=== PATIENT | male | born 1950 | race Caucasian/White ===

== ENCOUNTER 2019-01-26 09:30 | Emergency (ER) | payer MEDICARE, OTHER ==
[2019-01-26] MEDS ORDERED: ASPIRIN 81 MG TABLET, CHEWABLE PO ONE (09:45)
--- NOTE | 2019-01-26 09:48 | ER Document Report ---
ED Medical Screen (RME) - General Chief Complaint: Chest Pressure Stated Complaint: BLOOD PRESSURE ISSUES Time Seen by Provider: 01/26/19 09:45 Primary Care Provider: DAVID MCFARLAND MD [Primary Care Provider] - Follow up as needed TRAVEL OUTSIDE OF THE [place] IN LAST 30 DAYS: No - HPI Notes: 01/26/19 09:47 Patient is a 68-year-old male with a history of hypertension and hypercho lesterolemia who presents complaining of chest tightness, elevated blood pressure that began last evening with an episode of diaphoresis this morning. Patient states that he does continue to have some tightness in his chest without any shortness of breath or dyspnea on exertion. No history of coronary artery disease, CHF, CKD, SD, DM, PE. Denies ALFREDO, fever, neck pain, URI, SOB, Abd pain, n/v/d, dysuria, back pain, or rash. I have treated and performed a rapid initial assessment of this patient. A comprehensive ED assessment and evaluation of the patient, analysis of test results and completion of medical decision making process will be conducted by additional ED providers. PHYSICAL EXAMINATION: GENERAL: Well-appearing, well-nourished and in no acute distress. A&Ox4. Answers questions appropriately. LUNGS: Breath sounds clear to auscultation bilaterally and equal. No wheezes rales or rhonchi. HEART: Regular rate and rhythm without murmurs, rubs, gallops. Extremities: No cyanosis, clubbing, or edema b/l. Rashida negative bilaterally. No lower extremity asymmetry. NEUROLOGICAL: Normal speech, normal gait. PSYCH: Normal mood, normal affect. - Related Data Allergies/Adverse Reactions: No Known Allergies Allergy (Verified 01/26/19 09:30) Past Medical History Past Surgical History: Reports: Hx Appendectomy - Immunizations Hx Diphtheria, Pertussis, Tetanus Vaccination: No - needs tetanus Physical Exam - Vital signs Vitals: Temp Pulse Resp BP Pulse Ox 98.0 F 75 16 160/90 H 96 01/26/19 09:43 01/26/19 09:43 01/26/19 09:43 01/26/19 09:43 01/26/19 09:43 Course - Vital Signs Vital signs: Temp Pulse Resp BP Pulse Ox 98.0 F 75 16 160/90 H 96 01/26/19 09:43 01/26/19 09:43 01/26/19 09:43 01/26/19 09:43 01/26/19 09:43 Doctor's Discharge - Discharge Referrals: DAVID MCFARLAND MD [Primary Care Provider] - Follow up as needed
[2019-01-26 10:15] LABS: ABSOLUTE EOSINOPHILS # (AUTO) 0.1 10^3/uL (0.0-0.6); ABSOLUTE LYMPHOCYTES (AUTO) 0.8 10^3/uL (0.5-4.7); ABSOLUTE MONOCYTES (AUTO) 0.4 10^3/uL (0.1-1.4); ABSOLUTE NEUT (AUTO) 3.8 10^3/uL (1.7-8.2); BASOPHILS % (AUTO) 0.6 % (0-2); EOSINOPHILS % (AUTO) 1.2 % (0-6); HEMATOCRIT 47.4 % (37.9-51.0); HEMOGLOBIN 16.3 g/dL (13.5-17.0); LYMPHOCYTES % (AUTO) 16.6 % (13-45); MEAN CORPUSCULAR HEMOGLOBIN 31.2 pg (27.0-33.4); MEAN CORPUSCULAR HGB CONC 34.3 g/dL (32.0-36.0); MEAN CORPUSCULAR VOLUME 91 fl (80-97); MONOCYTES % (AUTO) 7.8 % (3-13); PLATELET COUNT 212 10^3/uL (150-450); RED BLOOD COUNT 5.22 10^6/uL (4.35-5.55); RED CELL DISTRIBUTION WIDTH 13.1 % (11.5-14.0); SEGMENTED NEUTROPHILS % (AUTO) 73.8 % (42-78); TOTAL CELLS COUNTED % (AUTO) 100 %; WHITE BLOOD COUNT 5.1 10^3/uL (4.0-10.5)
[2019-01-26 10:31] LABS: ALANINE AMINOTRANSFERASE 30 U/L (21-72); ALBUMIN 4.3 g/dL (3.5-5.0); ALKALINE PHOSPHATASE 54 U/L (38-126); ANION GAP 7 (5-19); ASPARTATE AMINO TRANSFERASE 26 U/L (17-59); BILIRUBIN,DIRECT 0.2 mg/dL (0.0-0.4); BILIRUBIN,TOTAL 0.7 mg/dL (0.2-1.3); BLOOD UREA NITROGEN 14 mg/dL (7-20); CARBON DIOXIDE 29 mmol/L (22-30); CHLORIDE 105 mmol/L (98-107); GLUCOSE 93 mg/dL (75-110); POTASSIUM 4.1 mmol/L (3.6-5.0); SODIUM 141.2 mmol/L (137-145); TOTAL PROTEIN 6.9 g/dL (6.3-8.2)
--- NOTE | 2019-01-26 10:44 | RADIOLOGY REPORT (SQ) ---
EXAM DESCRIPTION: CHEST SINGLE VIEW COMPLETED DATE/TIME: 01/26/2019 10:36 am REASON FOR STUDY: CP COMPARISON: 10/01/2009 EXAM PARAMETERS: NUMBER OF VIEWS: One view. TECHNIQUE: Single frontal radiographic view of the chest acquired. RADIATION DOSE: NA LIMITATIONS: None. FINDINGS: LUNGS AND PLEURA: No opacities, masses or pneumothorax. No pleural effusion. MEDIASTINUM AND HILAR STRUCTURES: No masses. Contour normal. HEART AND VASCULAR STRUCTURES: Heart normal in size. Normal vasculature. BONES: No acute findings. HARDWARE: None in the chest. OTHER: No other significant finding. IMPRESSION: NO ACUTE RADIOGRAPHIC FINDING IN THE CHEST. TECHNICAL DOCUMENTATION: JOB ID: [id number] [employer]- All Rights Reserved Reading location - IP/workstation name: [email or web address]
--- NOTE | 2019-01-26 14:56 | ER Document Report ---
Entered by BERT BLANCO SCRIBE 01/26/19 1026 Acting as scribe for:RALPH ZARAGOZA DO ED General - General Chief Complaint: Chest Pressure Stated Complaint: BLOOD PRESSURE ISSUES Time Seen by Provider: 01/26/19 09:45 Primary Care Provider: DAVID MCFARLAND MD [NO LOCAL MD] - Follow up as needed Notes: 68-year-old male presents emergency department complaining of chest pressure onset yesterday. Patient states he was working out in the yard and felt a little bit more tired than usual so he came inside, he checked his blood pressure and found it was elevated and then he developed some chest pressure or tightness associated with diaphoresis. It did resolve with rest. This morning before jainism he checked his blood pressure again and found to be elevated into the 170s over 90s, went to jainism and during jainism he again developed chest pressure and diaphoresis which has since resolved with rest. Patient is currently chest pain-free. Patient has no history of cardiac disease, has no history of stress test or heart cath, only has a history of hypertension and borderline hyperlipidemia for which he recently stopped taking his medications. Father of a heart attack at 69 but did have a history of smoking and drinking, no other history of heart attacks in the family prior to age 80. TRAVEL OUTSIDE OF THE [place] IN LAST 30 DAYS: No - Related Data Allergies/Adverse Reactions: No Known Allergies Allergy (Verified 01/26/19 09:30) Past Medical History - General Information source: Patient - Social History Smoking Status: Never Smoker Chew tobacco use (# tins/day): No Frequency of alcohol use: Occasional Drug Abuse: None Family History: CAD - Father with history of smoking and drinking at 69 from a heart attack. Sister had a heart attack in her 80s., Malignancy - Mother from a brain tumor at 42 Patient has suicidal ideation: No Patient has homicidal ideation: No - Past Medical History Cardiac Medical History: Reports: Hx Hypercholesterolemia - Borderline approximately 220., Hx Hypertension Renal/ Medical History: Denies: Hx Peritoneal Dialysis Past Surgical History: Reports: Hx Appendectomy - Immunizations Hx Diphtheria, Pertussis, Tetanus Vaccination: No - needs tetanus Review of Systems - Review of Systems Constitutional: See HPI, Diaphoresis EENT: No symptoms reported Cardiovascular: See HPI, Chest pain -: Yes All other systems reviewed and negative Physical Exam - Vital signs Vitals: Temp Pulse Resp BP Pulse Ox 98.0 F 75 16 160/90 H 96 01/26/19 09:43 01/26/19 09:43 01/26/19 09:43 01/26/19 09:43 01/26/19 09:43 Interpretation: Hypertensive - Notes Notes: GENERAL: Alert, interacts well. No acute distress. HEAD: Normocephalic, atraumatic EYES: Pupils equal, round and reactive to light, extraocular movements intact. ENT: Oral mucosa moist, tongue midline. NECK: Full range of motion, supple, trachea midline. LUNGS: Clear to auscultation bilaterally, no wheezes, rales or rhonchi, no respiratory distress. HEART: Regular rate and rhythm, no murmurs, gallops, rubs. ABDOMEN: Soft, nontender, nondistended, bowel sounds present in all 4 quadrants. EXTREMITIES: Moves all 4 extremities spontaneously, no edema, radial and dorsalis pedis pulses 2/4 bilaterally. No cyanosis. NEUROLOGICAL: Alert and oriented x3, normal speech, no facial droop. PSYCH: Normal mood, normal affect. SKIN: Warm, Dry, normal turgor, no rashes or lesions noted. Course - Re-evaluation Re-evalutation: 01/26/19 11:36 Rechecked, still chest pain-free, initial troponin negative. We will recheck a second set at the 3-hour todd. 01/26/19 11:37 CBC unremarkable, CMP unremarkable, chest x-ray unremarkable, EKG shows sinus rhythm at a rate of 64, left axis deviation, normal intervals, no ST segment elevations or depressions, T wave flattening in lead III, minimally change from prior EKG on 11/23/2015 per my interpretation. 01/26/19 14:11 Still chest pain-free, repeat troponin is negative, patient will be discharged to home, follow-up with primary as an outpatient, recommend stress test within the next 2 weeks. - Vital Signs Vital signs: Temp Pulse Resp BP Pulse Ox 98.0 F 75 16 137/84 H 95 01/26/19 09:43 01/26/19 09:43 01/26/19 09:43 01/26/19 11:01 01/26/19 11:01 - Laboratory Result Diagrams: 01/26/19 09:51 01/26/19 09:51 - EKG Interpretation by Me Additional EKG results interpreted by me: 01/26/19 14:14 EKG shows sinus rhythm at a rate of 64, left axis deviation, normal intervals, LVH, no ST segment elevations or depressions, T wave flattening in lead III per my interpretation. Discharge - Discharge Clinical Impression: Chest pain of uncertain etiology Condition: Stable Disposition: HOME, SELF-CARE Additional Instructions: Chest Pain of Unclear Cause The exact cause of your chest pain isn't clear. Fortunately, there is no evidence of a dangerous medical condition. Further testing may be required to find the source of the pain. Most often, we find that this pain is coming from the chest wall -- the muscles or rib joints in the chest. But chest pain can come from the lung and lung lining, the esophagus, the heart valves or heart lining, and even the stomach or gallbladder. Rest. Eat lightly until the pain is gone. We may prescribe medicine for pain and inflammation. You should call the physician immediately if the pain radiates to the shoulder, jaw or arms; if you start to run a fever or develop a cough; or if you develop shortness of breath, or other new or alarming symptoms. We did not find any evidence that this was a heart attack however you should still have a stress test within the next 2 weeks to rule out narrowing of your coronary arteries that could lead to a heart attack in the future. Please follow-up with Dr. Tobin or call Dr. Catherine to be seen as an outpatient. Please return for worsening pain. Referrals: AIMEE JONES MD [Primary Care Provider] - Follow up as needed JOYCE CATHERINE MD [ACTIVE STAFF] - Follow up as needed I personally performed the services described in the documentation, reviewed and edited the documentation which was dictated to the scribe in my presence, and it accurately records my words and actions.
[2019-01-26 15:06] VITALS: BP 128/84
--- NOTE | 2019-01-26 18:39 | EKG REPORT ---
SEVERITY:- ABNORMAL ECG - SINUS RHYTHM LEFT VENTRICULAR HYPERTROPHY : Confirmed by: Liane Whittaker MD 26-Jan-2019 18:38:54
== END 2019-01-26 15:30 | disposition home or self-care (01) ==
LOC: ER 09:30
DX: R07.9 Chest pain, unspecified (principal); R61 Generalized hyperhidrosis
CPT/HCPCS: 93005; 99285; 36415; 85025; 80053; 84484; 71045; 93010; A9270